=== PATIENT | male | born 1980 | race Two or more races ===

== ENCOUNTER 2017-05-24 06:03 | Day surgery (SDC) | payer BC ==
[~2017-05-24] VITALS: Ht 167.6 cm; Wt 70.8 kg
[~2017-05-24 06:03] MED LIST: CIPR500T94 PO
[2017-05-24] MEDS ORDERED: IV RINGERS,LACTATED 1000ML 1,000 ML IV SCH ×2 (06:11→08:46)
[2017-05-24] MEDS ORDERED: MIDAZOLAM HCL/PF 2 MG/2 ML VIAL. IV PRN (06:15)
[2017-05-24] MEDS ORDERED: fentaNYL PF VIAL 100 MCG/2 ML VIAL IV PRN ×3 (06:15→09:00)
[2017-05-24] MEDS ORDERED: LIDOCAINE 1% 1 ML SYRINGE. ID PRN ×2 (06:15→09:00)
[2017-05-24] MEDS ORDERED: fentaNYL PF VIAL 100 MCG/2 ML VIAL ONE ×3 (07:00→08:56)
[2017-05-24] MEDS ORDERED: LIDOCAINE 2% PF Vial for OR 5 ML VIAL. ONE (07:00)
[2017-05-24] MEDS ORDERED: PROPOFOL 0 ML IV ONE (07:00)
[2017-05-24] MEDS ORDERED: SUCCINYLCHOLINE 200 MG/10 ML VIAL. ONE (07:01)
[2017-05-24] MEDS ORDERED: ROCURONIUM 100 MG/10 ML VIAL. ONE (07:01)
[2017-05-24] MEDS ORDERED: BUPIVACAINE-EPI 0.25%-1:200000 MPF 30 ML VIAL. ONE (07:10)
[2017-05-24] MEDS ORDERED: DESFLURANE 31 TO 60 MINUTES IH ONE (07:41)
[2017-05-24] MEDS ORDERED: ONDANSETRON PF 4 MG/2 ML VIAL. ONE (07:41)
[2017-05-24] MEDS ORDERED: DEXAMETHASONE SOD PHOS 20 MG/5 ML VIAL. ONE (07:41)
[2017-05-24] MEDS ORDERED: NEOSTIGMINE 10 MG/10 ML VIAL. ONE (07:54)
[2017-05-24] MEDS ORDERED: GLYCOPYRROLATE 1 MG/5 ML VIAL. ONE (07:54)
[2017-05-24] MEDS ORDERED: PROPOFOL 20 ML IV ONE (08:04)
--- NOTE | 2017-05-24 08:23 | PDOC4 ---
Operative Note Operative Note Date: 05/24/2017 Preoperative diagnosis: Right inguinal hernia Postoperative diagnosis: Same Procedure: Robotic-assisted laparoscopic right inguinal hernia repair with mesh Surgeon: Augusto Specimen: None Dictation: Patient is a 36-year-old male is complaints of a painful right groin bulge consistent with a right inguinal hernia. The procedure of robotic- assisted laparoscopic right inguinal hernia repair was explained to the patient in detail all risks benefits were also discussed including bleeding infection injury to intra-abdominal contents possibly necessitating open operation. Alternatives this procedure were also discussed the patient seemed understanding gave both verbal and written consent to have the procedure performed. She was taken to the operating room placed in the supine position general anesthesia was initiated once patient was asleep and intubated he was placed in low lithotomy and his abdomen was prepped and draped in the usual sterile fashion using ChloraPrep. An area just above the umbilicus injected with quarter percent Marcaine with epinephrine and incision was made with 11 blade scalpel and a varies needle was placed within the abdomen creating a pneumoperitoneum. An 8 mm da Martinez port was placed and camera was placed within the abdomen and which was inspected. No other at maladies were noted other than a right inguinal hernia. At this time 2 more 8 mm ports were placed under direct utilization one in the mid right abdomen and one in the mid left abdomen the da Martinez robot was brought in and docked all ports in the surgeon went to the robotic console. Using a grasper and Endo Soto scissors a window was propagated the peritoneum over the hernia and the hernia contents were reduced. Pro engineering director mesh was then placed over the floor of the pelvis covering the hernia. It was then closed over the mesh with a running V lock suture. Pneumoperitoneum was reduced all ports removed the robotic was undocked and removed from the operative field. The skin incisions port at the port sites were closed with 4 subcuticular Monocryl Mastisol Steri-Strips and island dressings were applied. Was awakened and extubated in the operating room taken to recovery in stable condition all sponge instrument and needle counts listed as correct estimated blood loss 5 mL. MARINA JAMISON MD May 24, 2017 08:23
--- NOTE | 2017-05-24 08:24 | DISCH ---
DISCHARGE INSTRUCTIONS Condition on Discharge Condition on Discharge: Stable Activity After Discharge Activity Instructions for Disc: Avoid exertion Other activity instructions: No lifting >20lbs for 2 weeks Diet after Discharge Diet after Discharge: Regular Wound Incision Care Other wound/incision instructi: may shower in 24 hours Contacting the after DC Call your doctor for: If your condition worsens Follow-Up Follow up with: Dr Jamison in 2 weeks MARINA JAMISON MD May 24, 2017 08:24
[2017-05-24] MEDS: fentaNYL PF VIAL 100 MCG/2 ML VIAL IV PRN ×4 (08:40→09:10)
[2017-05-24] MEDS ORDERED: OXYC-323 PO (08:57)
[2017-05-24] MEDS ORDERED: oxyCODONE/APAP 5/325 1 TAB TABLET PO ONE (09:00)
[2017-05-24] MEDS ORDERED: HYDROmorphone 2 MG/ML VIAL IV PRN (09:00)
[2017-05-24] MEDS ORDERED: PROCHLORPERAZINE 10 MG/2 ML VIAL. IV PRN (09:00)
[2017-05-24] MEDS ORDERED: ONDANSETRON PF 4 MG/2 ML VIAL. IV PRN (09:00)
[2017-05-24] MEDS ORDERED: MORPHINE SULFATE 4 MG/ML DISP.SYRIN. ONE (09:13)
[2017-05-24] MEDS: MORPHINE SULFATE 2 MG/ML DISP.SYRIN. IV PRN ×3 (09:20→09:44)
[2017-05-24 10:04] VITALS: BP 137/87
== END 2017-05-24 10:28 | disposition home or self-care (01) ==
LOC: SURG 06:03
PROVIDERS: ATTEND Surgery
DX: K40.90 Unilateral inguinal hernia, without obstruction or gangrene, not specified as recurrent (principal)
CPT/HCPCS: 49650; C1781; J0330; J0690; J1100; J2270; J2405; J2704; J2710; J3010; J3490; J2001